=== PATIENT | male | born 1955 | race Caucasian/White ===

== ENCOUNTER 2023-03-26 16:13 | Emergency (ER) | payer OTHER, MEDICARE ==
[2023-03-26] MEDS ORDERED: Lidocaine 2% Jelly 10 ML Urojet MUCMEM ONE (16:30)
[2023-03-26] MEDS ORDERED: Ketorolac 30 MG/ML SDV IM ONE (16:50)
[2023-03-26] MEDS ORDERED: Acetaminophen 500 MG Tab PO ONE (16:50)
== END 2023-03-26 17:19 | disposition home or self-care (01) ==
LOC: DL.ED 16:13
DX: T83.038A Leakage of other urinary catheter, initial encounter (principal); Y84.6 Urinary catheterization as the cause of abnormal reaction of the patient, or of later complication, without mention of misadventure at the time of the procedure
CPT/HCPCS: 51702; 96372; 99282; 99283-25; A9270-GY; C1758; J1885